=== PATIENT | female | born 1950 | race African-American/Black ===

== ENCOUNTER 2016-03-27 13:41 | Observation (INO) | payer MEDICARE ==
[~2016-03-27] VITALS: Ht 157.5 cm; Wt 75.0 kg
[2016-03-27 14:32] LABS: BASOPHILS 0.4 % (0.0-2.0); HEMATOCRIT 40.2 % (36.0-48.0); HEMOGLOBIN 13.2 g/dL (12-16); IMMATURE GRANULOCYTES 0.3 % (0-5); LYMPHOCYTES 20.3 % (15-50); MCH 27.4 pg (26.0-34.0); MCHC 32.8 g/dL (31.0-37.0); MCV 83.6 fL (80.0-100.0); MEAN PLATELET VOLUME 9.9 fL (7.4-10.4); MONOCYTES 6.2 % (2-11); NEUTROPHILS 69.8 % (40-80); PLATELET COUNT 244 10x3/uL (130-400); RBC 4.81 10x6/uL (4.00-5.40); RDW 14.8 % (11.5-14.5); WBC 7.8 10x3/uL (4.8-10.8)
[2016-03-27 14:43] LABS: APTT 31.7 SECONDS (22.8-39.4); INR 1.08 (0.85-1.17); PROTIME 13.9 SECONDS (11.6-15.0)
[2016-03-27 14:44] LABS: D-DIMER-QUANTITATIVE 0.7 ug/mLFEU (0.20-0.54)
[2016-03-27 14:47] LABS: ALBUMIN 3.6 g/dL (3.4-5.0); ANION GAP 13.3 mmol/L (8-16); BILIRUBIN - TOTAL 0.58 mg/dL (0.2-1.3); CALCIUM 9.2 mg/dL (8.5-10.1); CARBON DIOXIDE 27.3 mmol/L (21.0-32.0); CREATININE - SERUM 0.9 mg/dL (0.6-1.3); POTASSIUM - SERUM 3.6 mmol/L (3.5-5.1); PROTEIN - SERUM 7.7 g/dL (6.4-8.2)
[2016-03-27 22:13] VITALS: BP 172/74; Ht 157.5 cm; Wt 75.0 kg
[2016-03-27] MEDS ORDERED: ZANAFLEX4 MG PO (22:46)
[2016-03-27] MEDS ORDERED: NEURONTIN 300300 MG PO (22:47)
[2016-03-27] MEDS ORDERED: HYDROCODONE-APA1 TAB PO (22:49)
[2016-03-27] MEDS ORDERED: PRAVACHOL40 MG PO (22:50)
[2016-03-27] MEDS ORDERED: OMEPRAZOLE20 M1 PO (22:51)
[2016-03-27] MEDS ORDERED: DIOVAN320 MG PO (22:52)
[2016-03-27] MEDS ORDERED: BAYER CHEWABLE81 MG PO (22:53)
[2016-03-28] MEDS ORDERED: ASPIRIN325 MG PO (02:54)
--- NOTE | 2016-03-28 08:00 | NUR ---
PT AWAKE AND ALERT ORINETED X 3 LUNGS CLAER BILATERALLY NOTED HTN THIS AM TREATED PER ORDER WITH APRESOLINE PER IVP. WELL LISINOPRIL PO PER ORDER AFTER 25 MIN B/P 156/68
[2016-03-28 08:44] VITALS: BP 219/66
--- NOTE | 2016-03-28 09:00 | NUR ---
ENTERED PT ROOM TO CHECK ON PT NOTD PT TAKING HOME MEDICATIONS. PT REPORTED SHE TOOK PRILOSEC, NEURONTIN 300 MG, MELOXICAM 7.5 MG QUESTIONED REPEATEDLY ABOUT B/P MEDS PT STATED THAT SHE DIDN;'T TAKE ANY B/P MEDS. REMOVED FROM ROOM TO BE LABELED PER PHARMACY FOR DOSING PT REFUSES TO TAKE HOSPITAL MEDS WANTS TO TAKE HOME MEDS.
--- NOTE | 2016-03-28 09:07 | NUR ---
Patient Name: BANDAR HOWE Admission Status: ER Accout number: [id number] Admission Date: 03-27-2016 : 1950 Admission Diagnosis: Attending: WALT Current LOS: 1 Anticipated DC Date: 03-29-2016 Planned Disposition: Home or Self Care Primary Insurance: [employer] MEDICARE ADV Discharge Planning Comments: CM MET WITH PATIENT REGARDING D/C NEEDS AND PLANS. PATIENT STATED SHE LIVES IN [place] AND WAS VISITING HER MOTHER WHEN SHE BECAME ILL. PATIENT STATED SHE HAS NO STEPS OR STAIRS TO ENTER HER HOME. PATIENTS SON WILL DRIVE HER HOME AT DISCHARGE. PATIENT STATED SHE IS INDEPENDENT WITH HER CARE AND HAS NO DME AT HOME. PATIENTS PCP IS DR. BELCHER IN [place] AND SHE [facility] IN [place]. PATIENT HAS NEVER HAD HOME HEALTH AND STATED SHE DOES NOT WANT IT. CM WILL CONTINUE TO FOLLOW PATIENT WITH D/C NEEDS AND PLANS. PCP DR. BELCHER ([place]) [facility] ([place]) [phone] FRANK HOWE (DAUGHTER) [phone] Instructor Military Science: Polly Peres Is the patient Alert and Oriented? Yes 0 * How many steps to enter\exit or inside your home? 0 0 * PCP DR. BELCHER ([place]) 0 * Pharm[facility] ([place]) [phone] 0 * Preadmission Environment Home with Family 0 * ADLs Independent 0 * Equipment None 0 * List name and contact numbers for known caregivers / representatives who currently or will assist patient after discharge: FRANK HOWE (DAUGHTER) [phone] 0 * Additional services required to return to the preadmission environment? Yes 0 * Can the patient safely return to the preadmission environment? Yes 0 * Has this patient been hospitalized within the prior 30 days at any hospital? No 0 Grand Total: 0
--- NOTE | 2016-03-28 09:54 | NUR ---
PT CALLED FAMILY TO BRING HOME MEDS PT TOOK HOME MEDS BEFORE THIS NURSE KNEW MEDS WERE HERE. REMOVED FROM ROOM TO BE LABELED IN PHARMACY FOR DISTRIBUTION TO PT. WILL MONITOR.
[2016-03-28 12:02] VITALS: BP 160/58
--- NOTE | 2016-03-28 13:52 | NUR ---
AWAKE AND ALERT. ORIENTED X3. DR. WRIGHT IN ROOM. DENIES NEEDS. DISCHARGED TO HOME AT THIS TIME.
--- NOTE | 2016-03-28 16:08 | NUR ---
PT DISCHARGED AT THIS TIME PT PIV DISCONTINUED TOLERATED WELL PT LEFT VIA WHEELCHAIR WITH FAMILY.
== END 2016-03-28 16:09 | disposition home or self-care (01) ==
LOC: D.ER 13:41 → D.MS 19:25 → OBSVTIME 19:25 → D.MS 19:25
PROVIDERS: Emergency Medicine; ADMIT Family Medicine
DX: G45.9 Transient cerebral ischemic attack, unspecified (principal); R53.1 Weakness; I10 Essential (primary) hypertension; R47.81 Slurred speech; F17.200 Nicotine dependence, unspecified, uncomplicated